=== PATIENT | female | born 1990 | race Caucasian/White ===

== ENCOUNTER 2024-02-29 22:14 | Emergency (ER) | payer MEDICARE, MEDICAID, SELFPAY ==
--- NOTE | ~2024-02-29 | XR_ITS ---
EXAMINATION: XR SHOULDER, RIGHT CLINICAL INFORMATION: Pain COMPARISON: None available. TECHNIQUE: AP external rotation, Grashey, scapular Y, and axillary views of the right shoulder. FINDINGS: The bones and soft tissues are normal. No fracture. Glenohumeral and acromioclavicular alignment is anatomic with normal joint space. No abnormal soft tissue calcifications. XR/XR shoulder RT min 2V IMPRESSION: Normal right shoulder.
[2024-02-29 22:18] VITALS: BP 140/90; PULSE 102; RESP 18; TEMP 36.8; O2SAT 99; BMI 21.3
--- NOTE | 2024-02-29 23:20 | ED.EXTPRO ---
HPI - Extremity Problem General Chief complaint: Extremity Injury, Upper Stated complaint: rt shoulder/arm pain Time Seen by Provider: 02/29/24 23:03 Source: patient Mode of arrival: ambulatory Limitations: no limitations History of Present Illness ED Provider: DR. Mullen HPI Narrative: This is a 33-year-old female right-handed work at [employer] came in for evaluation of right shoulder pain, started a month and a half ago patient do not recall having trauma to the right shoulder pain has been slowly getting worse over the past 6 weeks, pain is mostly focal to the right shoulder more if she try to raise her right shoulder above her head or abductor right shoulder. No neck pain, no weakness or numbness. Related Data Allergies Allergy/AdvReac Type Severity Reaction Status Date / Time amoxicillin Allergy Hives Verified 02/29/24 22:24 ampicillin Allergy Hives Verified 02/29/24 22:24 Penicillins Allergy Hives Verified 02/29/24 22:24 Review of Systems Review of Systems: All other systems are reviewed and are negative Constitutional: Reports as per HPI and Reports no additional constitutional complaints Eyes: Reports as per HPI and Reports no additional eye complaints Reports system reviewed and no additional complaints, except as documented Cardiovascular: Reports as per HPI and Reports no additional cardiovascular complaints Respiratory: Reports as per HPI and Reports no additional respiratory complaints Gastrointestinal: Reports as per HPI and Reports no additional gastrointestinal complaints Genitourinary: Reports no additional female genitourinary complaints Musculoskeletal: Reports no additional musculoskeletal complaints Skin/Breast: Reports system reviewed and no additional complaints, except as docu Psychiatric: Reports no additional psychiatric complaints Endocrine: Reports no additional endocrine complaints Hematologic/Lymphatic: Reports no additional hematologic/lymphatic complaints Allergic/Immunologic: Reports no additional allergic/immunologic complaints Reports system reviewed and no additional complaints, except as documented and Reports Abnormal speech present [facility] Social History Social History Advance Directives: No Advance Directives Information Provided: No Do you have a plan to hurt others: No Plan Physical Exam Vital Signs: Vital Signs: Last Vital Signs Temp 98.2 F 02/29/24 22:18 Pulse 102 H 02/29/24 22:18 Resp 18 02/29/24 22:18 BP 140/90 H 02/29/24 22:18 Pulse Ox 99 02/29/24 22:18 O2 Del Method Room Air 02/29/24 22:18 BMI result Body Mass Index 21.3 Vital signs have been reviewed and appear to be correct. Blood pressure elevated. Heart rate elevated. Respiratory rate normal. Temperature normal. Oxygen saturation normal. Appearance: Alert. Oriented X3. No acute distress. Head: Normal external exam. Normocephalic. Atraumatic. No Mari signs noted. No raccoon eyes noted Eyes: PERRLA. EOMI. Conjunctiva and sclera normal. Eyelids normal. ENT: TM's Normal. Pharynx normal. Uvula midline. Moist mucous membranes. No trismus noted. No drooling noted. No muffled voice noted. Neck: Normal inspection. Neck supple. FROM. No adenopathy. Thyroid Normal. No meningeal signs. No neck mass noted. CVS: Normal heart rate and rhythm. Heart sound normal. No murmurs noted. Pulses normal throughout. Respiratory: No respiratory distress. Painless inspiration. Breath sounds normal. No wheezes/rales/rhonchi noted. Chest nontender. No accessory muscle usage noted or decreased air movement noted. Abdomen: Soft and nontender. Bowel sounds normal in all 4 quadrants. No distention noted. No organomegaly noted. No visible injury noted. Back: No CVA tenderness. Full range of motion noted. Skin: Skin warm and dry. Normal skin color. Normal skin turgor. No rashes/lesions/lacerations noted. Extremities: Right shoulder: Point of tenderness over lesser tuberosity of the right humerus, holding shoulder in adduction position tender to abduct the shoulder after passing 30 degree, no deformity, no step-off, a positive brachial artery pulsation, positive right radial artery pulsation, cap refill less than 2 seconds in the right hand, sensation is intact to light touch in the entire right upper extremity. Neuro: Oriented X 3. Cranial nerve exam: II-XII are grossly intact No motor deficit. No sensory deficit. Reflexes normal. Course Reevaluation(s) Reevaluation #1: 33-year-old female with right shoulder pain for month and a half, physical exam consistent with right rotator cuff tendinitis, patient was instructed to avoid strenuous activity, NSAIDs if needed for pain, and follow-up with ortho. Time: 23:26 Medical Decision Making Differential Diagnosis Differential Diagnoses: The differential diagnosis associated with the presentation includes (Right shoulder arthritis, right shoulder subluxation, rotator cuff tendinitis, right shoulder dislocation, neurovascular compromise.) Admission/Observation Consideration of admission/observation: Escalation of care including admission/observation considered Independent Interpretation I performed an independent interpretation of an: Plain X-Ray (Right shoulder: Normal right shoulder.) Radiology Impression Discussion of test interpretation with radiology: I have reviewed the radiologist's reading. Discharge Plan Discharge Clinical Impression: Right rotator cuff tendonitis Patient Disposition: Home, Self-Care Instructions: Rotator Cuff Tendinitis (ED) Additional Instructions: Avoid strenuous activity, no heavy lifting. Take ibuprofen 200 mg tablet every 6 hours if needed pain or 500 mg Tylenol every 6 hours if needed for pain. If symptoms persist follow-up with Dr. De. Referrals: Micky De MD [Physician] - Lillian Horvath NP [Primary Care Provider] - Print Language: Ugandan
[2024-03-01 00:02] VITALS: BP 134/68; PULSE 78; RESP 18; TEMP 36.8; O2SAT 99
== END 2024-02-29 23:58 | disposition home or self-care (01) ==
PROVIDERS: Emergency Provider Emergency Medicine; PCP Nurse Practitioner Family
DX: M75.101 Unspecified rotator cuff tear or rupture of right shoulder, not specified as traumatic (principal); M25.511 Pain in right shoulder
CPT/HCPCS: 73030; 99283; 99284

== ENCOUNTER 2024-03-31 11:02 | Outpatient (AMB) | payer MEDICARE, MEDICAID, SELFPAY ==
--- NOTE | 2024-03-31 11:05 | MHC.OFFVIS ---
Vital Signs 03/31/24 11:13 Height 5 ft 4 in Weight 124 lb BMI 21.3 Handedness Right Intake Visit Reasons: New Pt - right shoulder pain Intake Note: Rina is a 33 year old right hand dominant female who presents today as a new patient for a evaluation of her right shoulder pain. 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 She mentions having ongoing pain for about 2 months and she feels that it is getting worse. Her pain is worse when she tries to raise her right shoulder above her head. She mentions that she is unsure if it is work related. Patient states that her pain comes and goes. Allergies amoxicillin Allergy (Verified 03/31/24 11:08) Hives ampicillin Allergy (Verified 03/31/24 11:08) Hives Penicillins Allergy (Verified 03/31/24 11:08) Hives HPI HPI New Pt - right shoulder pain: Details: 33-year-old right hand dominant female who presents in the office today, as a new patient, for an evaluation of right shoulder pain. The patient presented to the ED on 02/29/24 with a complaint of right shoulder pain that had been present for 1.5 months. She claimed the pain had been increasing over the prior 6 weeks. X-rays were obtained. She was instructed to avoid strenuous activities and to take NSAIDs PRN for pain. ? ? While in the office today, the patient ongoing pain for two months that she states is increasing and intermittent. She also has an increase in pain when lifting her right upper extremity over her head. She is unsure if this is work related. ? ? 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 [facility] Social History (Updated 03/31/24 @ 11:12 by Johnny Haas) Alcohol intake: never e-Cigarette/Vaping Use: Former Use Current occupational status: employed Current occupation: Dog Daycare/ right hand dominant Review of Systems Const All systems reviewed & are unremarkable except as noted in HPI and below Physical Exam Vital Signs: BMI result Body Mass Index 21.3 Const General: cooperative, healthy appearing and no acute distress Orientation/consciousness: patient oriented x3 Resp Effort & Inspection: normal respiratory effort and able to speak in complete sentences Cardio Rate: regular rate Peripheral pulses: Peripheral pulses 2+ throughout GI Palpation (GI): Soft to palpation Skin General skin exam: no rashes or lesions noted Lesions: no lesions Rashes: no rashes Neuro General: patient oriented x3 Extrem Other: Right shoulder: Normal to inspection. No ecchymosis, erythema, or edema. Full shoulder ROM in all planes. Positive cross-body reach. 5/5 strength with empty can. Negative drop arm. Pain along the impingement arc. NVI.? Assessment & Plan Assessment & Plan (1) Painful arc syndrome of right shoulder: Code(s): M75.101 - Unspecified rotator cuff tear or rupture of right shoulder, not specified as traumatic Category: Medical Plan Ms. Wilkins is a 33-year-old right hand dominant female who presents in the office today, as a new patient, for an evaluation of right shoulder pain. The patient presented to the ED on 02/29/24 with a complaint of right shoulder pain that had been present for 1.5 months. She claimed the pain had been increasing over the prior 6 weeks. X-rays were obtained. She was instructed to avoid strenuous activities and to take NSAIDs PRN for pain. ? ? While in the office today, the patient ongoing pain for two months that is increasing and intermittent. She also has an increase in pain when lifting her right upper extremity over her head. She is unsure if this is work related. ? ? Patient works at a [employer].? ? We discussed the role of physical therapy; however, the patient would like to have more accuracy in regard to the integrity of the right shoulder and would like to proceed with an MRI. I agree with this plan, and an order was placed in the office today. However, should the insurance deny the order the patient understands she will have attend six weeks of physical therapy at that time.? ? X-rays of the right shoulder which were obtained while in the office today and were reviewed by me, Annamarie Chang PA-C, revealed no acute fracture or dislocation. ? ? X-rays of the right shoulder, obtained on 02/29/24, revealed: No acute fracture or dislocation. ? Orders: Orders PT Evaluation and Treatment Today M75.101 - Unspecified rotator cuff tear or rupture of right shoulder, not specified as traumatic MR shoulder RT wo con Today M75.101 - Unspecified rotator cuff tear or rupture of right shoulder, not specified as traumatic Patient Instructions: Scribed by Denice Anguiano medical economics consultant, for Annamarie Chang PA-C on 03/31/2024 at 11:19 am, EST.? Coding Level of Care Code New Pt Level 4 (88311) Diagnoses Painful arc syndrome of right shoulder M75.101
[2024-03-31 11:13] VITALS: BMI 21.3
== END 2024-03-31 11:45 | disposition home or self-care (01) ==
PROVIDERS: PCP Nurse Practitioner Family; Visit Provider Physician Assistant
DX: M75.101 Unspecified rotator cuff tear or rupture of right shoulder, not specified as traumatic (principal)
CPT/HCPCS: 99204

== ENCOUNTER → 2024-03-31 11:02 | Outpatient (BNVA) | payer MEDICARE, MEDICAID, SELFPAY | PROVIDERS: PCP Nurse Practitioner Family; Visit Provider Physician Assistant | DX: M75.101 Unspecified rotator cuff tear or rupture of right shoulder, not specified as traumatic (principal) | CPT/HCPCS: 99202 ==

== ENCOUNTER 2024-04-27 07:30 | Outpatient (REF) | payer MEDICARE, MEDICAID, SELFPAY | END 2024-04-27 07:31 | disposition home or self-care (01) | LOC: HO.MRI 07:30 | PROVIDERS: PCP Nurse Practitioner Family; Visit Provider Physician Assistant | DX: Z13.89 Encounter for screening for other disorder (principal) ==

== ENCOUNTER 2024-05-15 08:00 | Outpatient (RCR) | payer MEDICARE, MEDICAID, SELFPAY ==
--- NOTE | 2024-04-20 14:00 | MHC.PT.EP ---
[facility] [place] Office [place] [facility] [place] [facility] [address] Inder Butts [address] [phone] F: [phone] F: [phone] F: [phone] F: [phone] Physical Therapy Plan of Care Date of Evaluation: 04/20/24 Date of Surgery: n/a Diagnosis: Unspecified rotator cuff tear or rupture of right shoulder, not specified as traumatic Painful arc syndrome of right shoulder Assessment: Pt is a pleasant 33yo F who presents to PT with right shoulder pain. Pt presents to PT with current impairments in pain, decreased right shoulder ROM, decreased strength, soft tissue restrictions and impaired posture. She is limited functionally by driving, pushing through her arms, reaching behind her back, overhead ADLs, lifting, walking dogs, and sleeping. She is a good candidate for skilled PT in order to address current impairments to facilitate return to PLOF. She is recommended to be seen 2x/week for 4 weeks and will be reassessed at that time Frequency and Duration: The patient will be seen 2x/week for 4 weeks Short Term Goals: Pt will be I with HEP to promote self management of symptoms Pt will improve right shoulder flexion by at least 10 degrees Healthcare Project Manager Goals: Pt will achieve full ROM and strength all planes of right shoulder to assist with lifting and reaching Pt will tolerate driving > 30 minutes with minimal to no pain or discomfort Pt will demonstrate improvements in function as evidenced by statistically significant improvement in SPADI outcome measure Treatment Plan: Modalities to reduce pain, spasms and effusion. Manual therapy to restore motion and function. Therapeutic exercise to improve strength and flexibility. Neuromuscular re-education for posture and balance. Therapeutic activities to return to functional activities of daily living. Electronically signed by: Rina Cárdenas, PT, DPT Please sign and return to therapist. Thank you for your referral.
--- NOTE | 2024-08-24 10:47 | MHC.PT.DC ---
[facility] [place] Office [place] [facility] [place] [facility] [address] Inder Butts [address] [phone] F: [phone] F: [phone] F: [phone] F: [phone] Physical Therapy Discharge Report Diagnosis: Unspecified rotator cuff tear or rupture of right shoulder, not specified as traumatic Painful arc syndrome of right shoulder Date of Surgery: n/a Date of Evaluation: 04/20/24 Date of Discharge: 08/24/24 Treatments to Date: 6 Cancellations to Date: 1 No Shows to Date: 2 Discharge Status: Visit Non-compliance Discharge Summary: Pt was seen for PT from 04/20/24-05/15/24. She had a no show appointment for her last scheduled appointment. Pt is being D/C from skilled PT per [facility] attendance policy and visit non compliance. Pt current level of function unknown at this time Electronically signed by: Rina Cárdenas, PT, DPT Please sign and return to therapist. Thank you for your referral.
== END 2024-08-24 10:47 | disposition home or self-care (01) ==
LOC: HO.PT 08:00
PROVIDERS: PCP Nurse Practitioner Family; Visit Provider Physician Assistant
DX: M75.101 Unspecified rotator cuff tear or rupture of right shoulder, not specified as traumatic (principal)
CPT/HCPCS: 97110; 97161